=== PATIENT | male | born 1990 | race Caucasian/White ===

== ENCOUNTER 2023-10-14 23:03 | Emergency (ER) | payer MEDICAID ==
[~2023-10-14] VITALS: Ht 182.9 cm; Wt 70.0 kg
[2023-10-14] MEDS ORDERED: TERB125S TP (23:23)
[2023-10-14 23:49] VITALS: BP 110/70; PULSE 70; RESP 14; TEMP 98.5; O2SAT 98
== END 2023-10-14 23:50 | disposition home or self-care (01) ==
LOC: ER 23:04
DX: B35.3 Tinea pedis (principal); Z79.899 Other long term (current) drug therapy
CPT/HCPCS: 99282